=== PATIENT | male | born 1960 ===

== ENCOUNTER 2018-02-08 22:49 | Emergency (ER) | payer SELFPAY ==
[2018-02-08 22:50] VITALS: BMI 34.9
[2018-02-08 22:55] VITALS: O2SAT 98
--- NOTE | 2018-02-08 22:59 | C.PDOC ---
History Of Present Illness Patient brought in via EMS after being found intoxicated in public. Denies any complaints at this time. Time Seen by Provider: 02/08/18 22:57 Chief Complaint (Nursing): Substance Abuse History Per: Patient History/Exam Limitations: no limitations Onset/Duration Of Symptoms: Hrs Current Symptoms Are (Timing): Still Present Suicide/Self Injury Attempted (Context): None Modifying Factor(s): Alcohol Severity: None Pain Scale Rating Of: 0 Associated Symptoms: denies: Depression, Suicidal Thoughts Involuntary Hold By: None Recent travel outside of the [place]: No Past Medical History Reviewed: Historical Data, Nursing Documentation, Vital Signs Vital Signs: Last Vital Signs Temp 98.7 F 02/08/18 22:50 Pulse 82 02/08/18 22:50 Resp 14 02/08/18 22:50 BP 196/91 H 02/08/18 22:50 Pulse Ox 98 02/08/18 22:50 - Medical History PMH: Benign Prostatic Hyperplasia, Fractures (nasal fracture), HTN Denies: Chronic Kidney Disease - [facility] Procedures INTRODUCTION OF SERUM/TOX/VACCINE INTO MUSCLE, PERC APPROACH (02/15/17) Family History: States: No Known Family Hx - Social History Hx Alcohol Use: Yes Hx Substance Use: No - Immunization History Hx Tetanus Toxoid Vaccination: No Hx Influenza Vaccination: No Hx Pneumococcal Vaccination: No Review Of Systems Constitutional: Positive for: Other (ETOH on breath). Negative for: Fever, Chills Cardiovascular: Negative for: Chest Pain, Palpitations Respiratory: Negative for: Cough, Shortness of Breath Gastrointestinal: Negative for: Nausea, Vomiting Neurological: Negative for: Weakness, Numbness Physical Exam - Physical Exam Appears: Non-toxic, Other (ETOH on breath, no sign of injury) Skin: Warm, Dry Head: Normacephalic Oral Mucosa: Moist Chest: Symmetrical, No Tenderness Cardiovascular: Rhythm Regular Respiratory: No Rales, No Rhonchi, No Wheezing Gastrointestinal/Abdominal: Soft, No Tenderness Neurological/Psych: Oriented x3 ED Course And Treatment O2 Sat by Pulse Oximetry: 98 (Room air) Pulse Ox Interpretation: Normal Progress Note: pt ambulating without any difficulty. wants to go home Reevaluation Time: 00:30 Reassessment Condition: Improved Disposition Counseled Patient/Family Regarding: Studies Performed, Diagnosis, Need For Followup - Disposition Referrals: [facility] [Outside] Disposition: HOME/ ROUTINE Disposition Time: 22:58 Condition: FAIR Instructions: Alcohol Abuse and Alcoholism (DC) Forms: [facility] (Turkmen) Print Language: UKRAINIAN - Clinical Impression Clinical Impression: Alcohol intoxication - Scribe Statement The provider has reviewed the documentation as recorded by the Scribbhavana Emmanuel All medical record entries made by the Nancyibe were at my direction and personally dictated by me. I have reviewed the chart and agree that the record accurately reflects my personal performance of the history, physical exam, medical decision making, and the department course for this patient. I have also personally directed, reviewed, and agree with the discharge instructions and disposition.
[2018-02-09 00:51] VITALS: BP 136/75; PULSE 75; RESP 20; TEMP 98.2
== END 2018-02-09 00:30 | disposition home or self-care (01) ==
LOC: C.ER 22:49
DX: F10.129 Alcohol abuse with intoxication, unspecified (principal); I10 Essential (primary) hypertension; N40.0 Benign prostatic hyperplasia without lower urinary tract symptoms